=== PATIENT | male | born 1965 | race Caucasian/White ===

== ENCOUNTER 2020-09-18 06:54 | Emergency (ER) | payer OTHER ==
[2020-09-18] MEDS ORDERED: Acetaminophen 325 MG TAB ONE (07:45)
--- NOTE | 2020-09-18 07:59 | RAD ---
Exam: XR Forearm Lt 2 View STANDARD HISTORY: Injury to left forearm after falling out of bed. Left wrist pain. COMPARISON: None FINDINGS: There is a mildly comminuted and impacted fracture involving the distal left radial metaphysis with w hat appears to be intra-articular extension of the fracture. Distal fracture fragments are slightly displaced dorsally. No additional fracture is seen, and there is no evidence of a dislocation. Subcutaneous soft tissue swelling is seen at the level of the wrist. IMPRESSION: Comminuted and impacted distal left radial metaphyseal fracture with intra-articular extension of the fracture.
[2020-09-18] MEDS ORDERED: Ketamine 50 MG/ML (10ML VIAL) ONE (08:36)
--- NOTE | 2020-09-18 10:05 | RAD ---
LEFT FOREARM 2 VIEWS: Date: 09/18/2020 INDICATION: Follow-up forearm fracture. COMPARISON: Prior exam dated 09/18/2020. FINDINGS/IMPRESSION: Post reduction images demonstrate interval placement of an overlying fiberglass splint. The angulated distal radius fracture is not appreciably changed in position or alignment. Overlying fiberglass spl int slightly limits image detail. POS: AH
== END 2020-09-18 10:04 | disposition home or self-care (01) ==
LOC: EEVIPCON 06:54 → ERS 06:54
DX: S52.502A Unspecified fracture of the lower end of left radius, initial encounter for closed fracture (principal); W19.XXXA Unspecified fall, initial encounter
CPT/HCPCS: 25605; 99152